=== PATIENT | male | born 1985 | race Two or more races ===

== ENCOUNTER 2018-03-13 18:54 | Emergency (ER) | payer OTHER ==
[~2018-03-13] VITALS: Ht 180.3 cm; Wt 79.5 kg
[2018-03-13 19:05] VITALS: Ht 180.3 cm; Wt 79.5 kg
[2018-03-13 20:08] VITALS: BP 151/94
== END 2018-03-13 20:08 | disposition home or self-care (01) ==
LOC: ED 18:54
DX: M27.2 Inflammatory conditions of jaws (principal)
CPT/HCPCS: J3490

== ENCOUNTER 2018-04-19 11:41 | Emergency (ER) | payer OTHER ==
[~2018-04-19] VITALS: Ht 180.3 cm; Wt 80.8 kg
[2018-04-19 12:01] VITALS: Ht 180.3 cm; Wt 80.8 kg
[2018-04-19 14:19] VITALS: BP 131/88
== END 2018-04-19 14:19 | disposition home or self-care (01) ==
LOC: ED 11:41
DX: M54.2 Cervicalgia (principal); M54.5 Low back pain
CPT/HCPCS: J1885